=== PATIENT | female | born 1990 | race Caucasian/White ===

== ENCOUNTER 2023-10-11 12:34 | Outpatient (CLI) | payer MEDICAID, SELFPAY ==
--- NOTE | ~2023-10-11 | US_ITS ---
EXAMINATION: US OB <= 14 weeks fetus DATE: 10/11/2023 13:22 INDICATION: Routine care at the junction of the first and second trimester of TECHNIQUE: Real-time pelvic ultrasound utilizing transabdominal probe was performed. The diane lau radiologist was not present for the study. COMPARISON: None. FINDINGS: The uterus measures 10.8 x 8.1 x 8.8 cm. There is an intrauterine gestational sac. A yolk sac and fe patricia pole are identified. The crown rump length measures 2.3 cm, which correlates with an estimated ge stational age of 10 weeks and 1 days. heart motion is identified measuring 172 beats per minute (bpm) by M-mode Doppler. The right ovary measures 2.3 x 1.8 x 2.2 cm. The left ovary measures 2.6 x 2.2 x 2.0 cm. There is no free fluid in the pelvis. IMPRESSION: 1. Single living fetus with heart rate of 172 bpm. 2. Gestational age by ultrasound of 10 weeks 1 day(s) +/- 6 day(s) with ultrasound estimated date of delivery (NATALYA) of 05/07/2024. Reviewed, dictated and finalized at location A. IMPRESSION: 1. Single living fetus with heart rate of 172 bpm. 2. Gestational age by ultrasound of 10 weeks 1 day(s) +/- 6 day(s) with ultras ound estimated date of delivery (NATALYA) of 05/07/2024.
== END 2023-10-11 12:35 | disposition home or self-care (01) ==
PROVIDERS: PCP Nurse Practitioner Family; Visit Provider Nurse Practitioner Family
DX: Z34.91 Encounter for supervision of normal pregnancy, unspecified, first trimester (principal); Z3A.10 10 weeks gestation of pregnancy
CPT/HCPCS: 76801